=== PATIENT | female | born 1980 | race African-American/Black ===

== ENCOUNTER 2018-05-28 08:42 | Emergency (ER) | payer OTHER, SELFPAY ==
[2018-05-28 09:16] LABS: #Basophils 0.1 thou/uL (0.0-0.2); #Eosinphils 0.2 thou/uL (0.0-0.7); #Lymphocytes 1.5 thou/uL (1.20-3.40); #Monocytes 0.3 thou/uL (0.11-0.59); #Neutrophils 2.1 thou/uL (1.40-6.50); %Eosinophils 5.8 % (0.0-10.0); %Lymphocytes 36.1 % (21.0-51.0); %Neutrophils 49.1 % (42.0-75.0); Hemoglobin 11.7 g/dL (12.0-16.0); Mean Corpuscular HGB CONC 30.9 g/dL (32.0-36.0); Mean Corpuscular Hemoglobin 28.1 pg (27.0-31.0); Mean Corpuscular Volume 91.1 fL (78.0-98.0); Mean Platelet Volume 9.6 fL (7.4-10.4); Platelet Count 267 thou/uL (130-400); RBC Distribution Width 12.6 % (11.5-14.5); Red Blood Cell (RBC) Count 4.16 mill/uL (4.20-5.40); White Blood Cell (WBC) Count 4.3 thou/uL (4.8-10.8)
[2018-05-28 09:37] LABS: ALT (SGPT) 8 U/L (8-55); AST (SGOT) 18 U/L (5-34); Albumin 4.1 g/dL (3.5-5.0); Alkaline Phosphatase 37 U/L (40-150); Anion Gap 11 mmol/L (10-20); BUN (Urea Nitrogen) 17 mg/dL (7.0-18.7); Bilirubin, Total 0.6 mg/dL (0.2-1.2); Calc. Creatinine Clearance 0 mL/min (70-130); Carbon Dioxide 23 mmol/L (22-29); Chloride 106 mmol/L (98-107); Estimated GFR-MDRD 83; Globulin 3.1 g/dL (2.4-3.5); Glucose 80 mg/dL (70-105); Lipase 32 U/L (8-78); Potassium 4.2 mmol/L (3.5-5.1); Protein, Total 7.2 g/dL (6.0-8.3); Sodium 136 mmol/L (136-145)
[2018-05-28 09:39] LABS: Bilirubin Negative (Negative); Blood, Urine Trace (Negative); Clarity CLEAR (Clear); Glucose, Urine (Dipstick) Negative (Negative); Leukocyte Negative (Negative); Nitrite Negative (Negative); Protein, Urine (Dipstick) Negative (Neg-Trace); Specific Gravity, Urine 1.026 (1.002-1.036)
[2018-05-28 09:41] LABS: Bacteria/HPF None Seen HPF (None Seen); Hyaline Casts/LPF 0-3 HYALINE CAST LPF (0-3 Hyaline); Pathc Cast-AUWi Flag 0.14 (0-2.49); Squamous Epithelial 0-3 HPF (0-3); WBC/HPF 0-3 HPF (0-3)
[2018-05-28 09:45] LABS: Pregnancy Test - Urine (BHCG) Negative (Negative); Pregu Control Background? CLEAR/WHITE (CLR/WHITE); Pregu Control Bar Appear? YES (CONTROL BAR); Specific Gravity 1.026 (1.002-1.036)
[2018-05-28] MEDS ORDERED: Dicyclomine 20 MG TAB ONE (10:23)
[2018-05-28] MEDS ORDERED: Metoclopramide HCl 10 MG/2 ML VIAL ONE (10:23)
[2018-05-28] MEDS ORDERED: Pantoprazole 40 MG VIAL ONE (10:24)
--- NOTE | 2018-05-28 11:19 | CT ---
CT ABDOMEN AND PELVIS CONTRAST ENHANCED: HISTORY: Abdominal pain and distention. TECHNIQUE: IV contrast was given. FINDINGS: The lung bases are unremarkable. Unfortunately, oral contrast was not given. This does decrease the sensitivity for detection of GI pathology. No evidence of free intraperitoneal air is seen. the liver and spleen are unremarkable. The gallbladder and pancreas are unremarkable. The adrenal g lands and kidneys are unremarkable. No dilated loops of small bowel seen. A small amount of free pelvic fluid is seen. An intrauterine device is in place. Bilateral ovarian cysts or cystic lesions present. IMPRESSION: 1. Limited examination, as oral contrast was not given, for detection of gastrointestinal pathology. 2. Small amount of free pelvic fluid. POS: [facility]
[2018-05-28] MEDS ORDERED: ISOVUE-370 76%-LOCM 1 ML ONE (12:31)
== END 2018-05-28 12:38 | disposition home or self-care (01) ==
LOC: ERS 08:42
DX: R10.13 Epigastric pain (principal); J45.909 Unspecified asthma, uncomplicated; F41.9 Anxiety disorder, unspecified
CPT/HCPCS: 36415; 74177; 80053; 81003; 81015; 81025; 82274; 83690; 85025; 96365; 96366; 96375; C9113; J2765

== ENCOUNTER 2019-10-20 08:45 | Outpatient (CLI) | payer BC ==
--- NOTE | 2019-10-20 11:02 | ULT ---
PELVIC ULTRASOUND: Date: 10/20/2019 HISTORY: IUD placement. TECHNIQUE: Multiplanar Vazquez scale sonographic imaging of the pelvis obtained with transabdominal imaging. Ovarie s are assessed with Doppler interrogation, including color flow and spectral analysis. FINDINGS: Uterus measures 8.4 x 5.7 x 4.8 cm. The uterus is anteflexed. Endometrial thickness is estimated at 8 .0 mm. There is an IUD in proper position overlying the endometrial stripe. Right ovary measures 2.8 x 1.8 x 2.1 cm. Left ovary measures 2.8 x 1.8 x 1.7 cm. There is normal blood flow within bilateral ovaries. No ovarian or adnexal mass. No free fluid. IMPRESSION: IUD in place. POS: [facility]
== END 2019-10-20 08:46 | disposition home or self-care (01) ==
LOC: BICULT 08:45
PROVIDERS: ATTEND Family Medicine
DX: R10.2 Pelvic and perineal pain (principal); Z97.5 Presence of (intrauterine) contraceptive device
CPT/HCPCS: 76856; 93976